=== PATIENT | male | born 1975 | race Caucasian/White ===

== ENCOUNTER 2019-04-08 04:45 | Emergency (ER) | payer OTHER ==
--- NOTE | 2019-04-08 05:26 | PDOC ---
History of Present Illness - General History Source: Patient Exam Limitations: No Limitations - History of Present Illness Initial Comments: 43 y/o F, no pmh, presents to the ED c/o of nonproductive cough w/ one episode of blood tinged sputum, that started Sunday evening and has since worsened, associated with malaise and fever. As per pt, he measured a temperature of 100.7 at home. He reports that his son has been recovering from a similar course of symptoms. In the ED, he has a temp of 100.7 orally and mildly tachy to 110s. He denies any recent travel, n/v/d/sob, numbness or tingling. 04/08/19 05:36 Is this a multiple visit Asthma Patient?: No Associated Symptoms: reports: denies symptoms, chest pain, cough, fever/chills, malaise. denies: headaches, nausea/vomiting, syncope <Ebenezer Mejía - Last Filed: 04/08/19 05:36> <Huber Edwards - Last Filed: 04/08/19 07:57> - General Chief Complaint: Cold Symptoms Stated Complaint: COUGH, PAIN Past History - Travel Traveled outside of the country in the last 30 days: No Close contact w/someone who was outside of country & ill: No - Past Medical History Asthma: No Cardiac Disorders: No COPD: No CHF: No Liver Disease: No - Psycho Social/Smoking Cessation Hx Smoking History: Never smoked Hx Alcohol Use: No Drug/Substance Use Hx: No <Ebenezer Mejía - Last Filed: 04/08/19 05:36> <Huber Edwards - Last Filed: 04/08/19 07:57> - Past Medical History Allergies/Adverse Reactions: Allergies Allergy/AdvReac Type Severity Reaction Status Date / Time No Known Allergies Allergy Verified 04/08/19 05:37 Home Medications: Ambulatory Orders Amoxicillin - [Amoxicillin 500mg Capsule -] 1,000 mg PO DAILY #9 capsule Review of Systems - Review of Systems Able to Perform ROS?: Yes Is the patient limited Bangladeshi proficient: No Constitutional: Yes: Symptoms Reported, Chills, Fever, Malaise, Weakness, Weight Stable. No: Loss of Appetite HEENTM: Yes: Symptoms Reported. No: Eye Pain, Blurred Vision, Tearing Respiratory: Yes: Symptoms reported, Cough (one productive episode of blood tinged sputum ). No: Shortness of Breath, Stridor, Wheezing Cardiac (ROS): Yes: Symptoms Reported, Chest Tightness ABD/GI: Yes: Symptoms Reported. No: Abdominal Distended, Diarrhea, Nausea, Vomiting Neurological: Yes: Symptoms reported. No: Headache, Numbness <Ebenezer Mejía - Last Filed: 04/08/19 05:36> *Physical Exam - Physical Exam General Appearance: Yes: Nourished, Appropriately Dressed HEENT: positive: EOMI, CORRY, Normal ENT Inspection, Pharynx Normal Neck: positive: Trachea midline, Normal Thyroid, Supple Respiratory/Chest: positive: Lungs Clear, Normal Breath Sounds. negative: Crackles, Wheezing Cardiovascular: positive: Regular Rhythm, S1, S2, Tachycardia. negative: Murmur , Gallop/S3, Gallop/S4 Vascular Pulses: Dorsalis-Pedis (R): 2+, Doralis-Pedis (L): 2+ Gastrointestinal/Abdominal: positive: Normal Bowel Sounds, Soft. negative: Guarding, Rebound Neurologic: positive: Fully Oriented, Alert, Normal Mood/Affect <Ebenezer Mejía - Last Filed: 04/08/19 05:36> - Vital Signs Last Vital Signs Temp Pulse Resp BP Pulse Ox 99.9 F H 102 H 18 134/81 99 04/08/19 04:50 04/08/19 04:50 04/08/19 04:50 04/08/19 04:50 04/08/19 04:50 <Huber Edwards - Last Filed: 04/08/19 07:57> ED Treatment Course - LABORATORY CBC & Chemistry Diagram: 04/08/19 06:00 04/08/19 06:00 - ADDITIONAL ORDERS Additional order review: Laboratory Results 04/08/19 06:00 Sodium 139 Potassium 4.2 Chloride 102 Carbon Dioxide 32 Anion Gap 5 L BUN 17.0 Creatinine 1.0 Est GFR (CKD-EPI)AfAm 104.88 Est GFR (CKD-EPI)NonAf 90.49 Random Glucose 100 Calcium 8.9 Total Bilirubin 0.4 AST 44 H ALT 67 H Alkaline Phosphatase 78 Total Protein 7.9 Albumin 4.1 04/08/19 06:00 RBC 5.94 H MCV 95.0 MCHC 33.7 RDW 13.4 MPV 10.3 Neutrophils % 58.4 Lymphocytes % 23.0 Monocytes % 16.4 H Eosinophils % 1.6 Basophils % 0.6 - Medications Given in the ED: ED Medications Discontinued Medications Generic Name Dose Route Start Last Admin Trade Name Hannah PRN Reason Stop Dose Admin Acetaminophen 1,000 mg 04/08/19 05:32 04/08/19 06:34 Ofirmev Injection - IVPB 04/08/19 05:33 1,000 mg ONCE ONE Administration Sodium Chloride 1,000 ml 04/08/19 05:32 04/08/19 06:33 Normal Saline - IV 04/08/19 05:33 1,000 ml ONCE ONE Administration <Huber Edwards - Last Filed: 04/08/19 07:57> Medical Decision Making - Medical Decision Making 43 y/o F, no pmh, presents to the ED c/o of nonproductive cough w/ one episode of blood tinged sputum, that started Sunday evening and has since worsened, associated with malaise and fever #Cough and Fever likely 2/2 to viral r/o flu CBC, CMP CXR IVF IV tylenol 04/08/19 05:43 <Ebenezer Mejía - Last Filed: 04/08/19 05:36> Discharge <Ebenezer Mejía - Last Filed: 04/08/19 05:36> - Discharge Information Problems reviewed: Yes <Huber Edwards - Last Filed: 04/08/19 07:57> - Discharge Information Clinical Impression/Diagnosis: Influenza B, Strep pharyngitis Condition: Fair - Additional Discharge Information Prescriptions: Amoxicillin - [Amoxicillin 500mg Capsule -] 1,000 mg PO DAILY #9 capsule - Follow up/Referral Referrals: Gamal Noel MD [Primary Care Provider] - - Patient Discharge Instructions Patient Printed Discharge Instructions: DI for Strep Throat, DI for Influenza - - Adult Additional Instructions: You were seen with cold like symptoms. You were found to have both group A strep and the flu. Please take your amoxicillin 1000mg once daily for the next 9 days. Make sure that you drink plenty of fluids. Follow up with your primary care doctor within one week. Return to the ED if you develop worsening symptoms. - Post Discharge Activity Work/Back to School Note: Back to Work
[2019-04-08] MEDS ORDERED: SODIUM CHLORIDE 0.9% 500 ML INFUS.BAG IV ONE (05:32)
[2019-04-08] MEDS ORDERED: ACETAMINOPHEN 1000 MG/100 ML VIAL (NON FORMULARY) IVPB ONE (05:32)
[2019-04-08 05:37] VITALS: BMI 27.8
--- NOTE | 2019-04-08 05:40 | PDOC ---
Attending Attestation - Resident Resident Name: Ebenezer Mejía - ED Attending Attestation I have performed the following: I have examined & evaluated the patient, The case was reviewed & discussed with the resident, I agree w/resident's findings & plan - HPI HPI: 04/08/19 06:18 see resident hpi - Physicial Exam PE: 04/08/19 06:18 agree with resident exam - Medical Decision Making 04/08/19 06:18 43-year-old male with fever body aches and sore throat here due to increasing malaise Plan for flu and strep testing IV fluid normal saline administered Labs and swabs pending Will plan for DC home pending results
[2019-04-08] MEDS ORDERED: ACETAMINOPHEN INJECTION 100 ML IVPB ONE (05:58)
[2019-04-08 06:33] LABS: BASO % 0.6 % (0-2.0); EOS % 1.6 % (0-4.5); HEMATOCRIT 56.5 % (35.4-49); HEMOGLOBIN 19.1 GM/dL (11.7-16.9); MCH 32.1 pg (25.7-33.7); MCHC 33.7 g/dl (32.0-35.9); MEAN PLT VOLUME 10.3 fl (7.5-11.1); MONO % 16.4 % (3.8-10.2); NEUT % 58.4 % (42.8-82.8); PLATELET COUNT 187 K/MM3 (134-434); RBC 5.94 M/mm3 (4.00-5.60); RDW 13.4 % (11.9-15.9); WHITE BLOOD COUNT 7.8 K/mm3 (4.0-10.0)
[2019-04-08 07:07] LABS: ALBUMIN 4.1 g/dl (3.4-5.0); BILIRUBIN,TOTAL 0.4 mg/dL (0.2-1); CALCIUM 8.9 mg/dL (8.5-10.1); POTASSIUM 4.2 mmol/L (3.5-5.1); TOT PROT 7.9 g/dl (6.4-8.2)
--- NOTE | 2019-04-08 07:20 | PDOC ---
*Physical Exam - Vital Signs Last Vital Signs Temp Pulse Resp BP Pulse Ox 99.9 F H 102 H 18 134/81 99 04/08/19 04:50 04/08/19 04:50 04/08/19 04:50 04/08/19 04:50 04/08/19 04:50 - Physical Exam 04/08/19 07:27 Gen: aaox3, nad heent: posterior pharynx erythema, tolerating secretions, no stridor neck: supple heart: +s1s2 reg lungs: cta b/l abd: soft, nt/nd +bs ext: no c/c/e ED Treatment Course - LABORATORY CBC & Chemistry Diagram: 04/08/19 06:00 04/08/19 06:00 - ADDITIONAL ORDERS Additional order review: Laboratory Results 04/08/19 06:00 Sodium 139 Potassium 4.2 Chloride 102 Carbon Dioxide 32 Anion Gap 5 L BUN 17.0 Creatinine 1.0 Est GFR (CKD-EPI)AfAm 104.88 Est GFR (CKD-EPI)NonAf 90.49 Random Glucose 100 Calcium 8.9 Total Bilirubin 0.4 AST 44 H ALT 67 H Alkaline Phosphatase 78 Total Protein 7.9 Albumin 4.1 04/08/19 06:00 RBC 5.94 H MCV 95.0 MCHC 33.7 RDW 13.4 MPV 10.3 Neutrophils % 58.4 Lymphocytes % 23.0 Monocytes % 16.4 H Eosinophils % 1.6 Basophils % 0.6 - Medications Given in the ED: ED Medications Discontinued Medications Generic Name Dose Route Start Last Admin Trade Name Freq PRN Reason Stop Dose Admin Acetaminophen 1,000 mg 04/08/19 05:32 04/08/19 06:34 Ofirmev Injection - IVPB 04/08/19 05:33 1,000 mg ONCE ONE Administration Sodium Chloride 1,000 ml 04/08/19 05:32 04/08/19 06:33 Normal Saline - IV 04/08/19 05:33 1,000 ml ONCE ONE Administration Medical Decision Making - Medical Decision Making 04/08/19 07:18 pt signed out pending flu and strep called by the lab, both flu and strep + will start abx stable for dc to home 04/08/19 07:28 discussed need for abx symptoms for flu started sunday will send rx to [email or web address] for dc to home and follow up with PMD Discharge - Discharge Information Problems reviewed: Yes Clinical Impression/Diagnosis: Influenza B, Strep pharyngitis Condition: Stable Disposition: HOME - Admission No - Follow up/Referral Referrals: Gamal Noel MD [Primary Care Provider] - - Patient Discharge Instructions Patient Printed Discharge Instructions: DI for Strep Throat, DI for Influenza - - Adult - Post Discharge Activity
[2019-04-08] MEDS ORDERED: AMOXICILLIN 500 MG CAPSULE (FP) PO ONE ×2 (07:22→07:52)
[2019-04-08 07:28] VITALS: BP 114/75; PULSE 96; TEMP 99.2
[2019-04-08] MEDS ORDERED: AMOXICILLIN 500 MG CAPSULE (FP) ONE ×2 (07:39→07:57)
== END 2019-04-08 08:12 | disposition home or self-care (01) ==
LOC: JER 04:45
PROC: 3E033NZ Introduction of Analgesics, Hypnotics, Sedatives into Peripheral Vein, Percutaneous Approach (ICD-10-PCS; principal; 2019-04-08)
DX: J10.1 Influenza due to other identified influenza virus with other respiratory manifestations (principal); J02.0 Streptococcal pharyngitis
CPT/HCPCS: 36415; 71046-TC-FY; 80053; 85025; 87804; 87880; 99283-25; J0131